=== PATIENT | male | born 1945 | race Caucasian/White ===

== ENCOUNTER 2021-03-16 13:05 | Observation (INO) | payer OTHER, SELFPAY ==
[2021-03-16] VITALS (19 sets, daily range): BP systolic 142–161; BP diastolic 67–93; PULSE 60–65; RESP 13–25; TEMP 36.1–36.6; O2SAT 96–100
--- NOTE | ~2021-03-16 | CT_ITS ---
EXAMINATION: CTA BRAIN/CAROTID DATE: 03/16/2021 13:54 INDICATION: TECHNIQUE: Computed tomographic angiography (CTA) of the head and neck was performed with 100 mL Omni paque-350 intravenous contrast. Multiplanar reconstructions and maximum intensity projection 3D-recon structions of the carotid arteries and of the intracranial arteries were created by the technologist on a separate workstation. Precontrast CT of the head was also obtained. Automated exposure control and iterative reconstruction technique were employed.The dose-length product was 1108.24 mGy-cm. COMPARISON: None. FINDINGS: Carotid arteries: There is 10% stenosis of the right carotid bulb relative to normal distal artery lumen diameter (NASC ET criteria). There is 10% stenosis of the left carotid bulb relative to normal distal artery lumen d iameter. Cervical soft tissues are unremarkable. Visualized apices of the lungs are clear. Likely dev elopmental anterior fusion at C6-T1. There is also posterior fusion across the bilateral C6-C7 facet joints and fusion posteriorly between the first and second ribs on both the left and right. 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 Chronic appearing mild ant erior wedging at T3 and T4. Intracranial arteries Small amount of atherosclerotic plaque at the bilateral carotid siphons and are codominant bilateral intracranial vertebral arteries. There is no hemodynamically significant stenosis in the vertebral, b asilar and internal carotid arteries. There are no aneurysms identified. Both A1 and P1 segments are patent. The left A1 segment however is diminutive with majority of the flow to the left anterior cer ebral artery supplied via the right A1 segment and a patent anterior communicating artery. Cerebral a rterial arborization appears symmetric. No abnormally enhancing brain lesions identified. IMPRESSION: 1. 10% stenosis of the right carotid bulb relative to normal distal artery lumen diameter (NASCET cri teria). 2. 10% stenosis of the left carotid bulb relative to normal distal artery lumen diameter. 3. No aneurysm, hemodynamically significant stenosis or dissection in the intracranial arteries. Reviewed, dictated and finalized at location A. IMPRESSION: 1. 10% stenosis of the right carotid bulb relative to normal distal artery lume n diameter (NASCET criteria). 2. 10% stenosis of the left carotid bulb relative to normal distal artery lumen diameter. 3. No aneurysm, hemodynamically significant stenosis or dissection in the intra cranial arteries.
--- NOTE | ~2021-03-16 | XR_ITS ---
EXAMINATION: XR chest 1V portable DATE: 03/16/2021 13:29 INDICATION: Stroke with left-sided facial droop. TECHNIQUE: frontal view of the chest was obtained. COMPARISON: None FINDINGS: The lungs are clear with no focal airspace opacities, pulmonary edema, pleural effusion or pneumothor ax. The cardiomediastinal silhouette is normal. Dual lead pacemaker seen with leads projecting over t he expected locations of the right atrium and right ventricle. IMPRESSION: 1. No acute cardiopulmonary disease. Reviewed, dictated and finalized at location A.
--- NOTE | ~2021-03-16 | US_ITS ---
EXAMINATION: US carotid duplex BI DATE: 03/17/2021 08:57 INDICATION: Left hemiparesis. TECHNIQUE: Grayscale, color Doppler, and pulsed Doppler images of the cervical carotid arteries were obtained. The degree of vessel stenosis is placed in one of the following categories: normal, <50%, 5 0-69%, >=70% but less than near-occlusion, near-occlusion, or total occlusion. Note that percent sten osis relative to normal distal artery lumen diameter is indirectly measured from velocity measurement s as described by Ze, et al. Radiology 2003; 229:340-346. COMPARISON: None. FINDINGS: RIGHT: The right common carotid artery (CCA) peak systolic velocity (PSV) is 82 cm/s. The right internal car otid artery (ICA) PSV is 71 cm/s. The right ICA end-diastolic velocity (EDV) is 29 cm/s. The right IC A/CCA PSV ratio is 0.9. Grayscale and color Doppler images yield an estimate of <50% diameter reducti on from plaque in the ICA. There is antegrade flow in the right vertebral artery. LEFT: The left CCA PSV is 94 cm/s. The left ICA PSV is 57 cm/s. The left ICA EDV is 20 cm/s. The left ICA/C CA PSV ratio is 0.6. Grayscale and color Doppler images yield an estimate of <50% diameter reduction from plaque in the ICA. There is antegrade flow in the left vertebral artery. IMPRESSION: 1. <50% stenosis in the right internal carotid artery. 2. <50% stenosis in the left internal carotid artery. Reviewed, dictated and finalized at location B.
--- NOTE | ~2021-03-16 | CT_ITS ---
EXAMINATION: CT brain wo con DATE: 03/16/2021 13:10 INDICATION: Stroke with left-sided hemiparesis and slurred speech. TECHNIQUE: Computed tomography (CT) of the head was performed without intravenous contrast. Sagittal and coronal reconstructions were performed. The mA was adjusted according to patient size. Iterative reconstruction technique was employed. The dose-length product was 605.33 mGy-cm. COMPARISON: 10/05/2012 FINDINGS: No acute intracranial hemorrhage, acute infarction or abnormal extra axial fluid collection. Symmetri c prominence of the sulci and ventricles consistent with mild age-appropriate diffuse cerebral volume loss. No mass/mass effect. Changes of right intraocular lens replacement. The orbits, paranasal sinu ses and mastoid air cells are normal. Intracranial calcified cerebral atherosclerosis is noted. IMPRESSION: 1. Mild age-appropriate diffuse volume loss. No acute intracranial process. Reviewed, dictated and finalized at location A.
--- NOTE | 2021-03-16 13:07 | ED.NEUROSD ---
HPI - Neuro Symptoms/Deficit General Chief Complaint: Suspected CVA Stated Complaint: CVA Time Seen by Provider: 03/16/21 13:06 History of Present Illness HPI Narrative: Patient is a 75-year-old male who presents ER with strokelike symptoms. At 1225 patient was in his yard using a watering can when he kept dropping the watering can. He went to his neighbor's house and that they told him he was having facial droop. They called paramedics who then came and picked him up. Mild improvement of symptoms upon arrival here. Still with left upper extremity weakness and coordination. Related Data Home Medications Medication Instructions Recorded Confirmed amlodipine 2.5 mg PO DAILY 03/16/21 03/16/21 aspirin 81 mg PO DAILY 03/16/21 03/16/21 atorvastatin 40 mg PO HS 03/16/21 03/16/21 candesartan 16 mg PO DAILY 03/16/21 03/16/21 ketorolac 1 drp RIGHT EYE TID 03/16/21 03/16/21 loteprednol etabonate [Lotemax SM] 1 drp RIGHT EYE DAILY 03/16/21 03/16/21 tamsulosin 0.4 mg PO DAILY 03/16/21 03/16/21 Allergies Allergy/AdvReac Type Severity Reaction Status Date / Time No Known Allergies Allergy Verified 03/16/21 13:19 Review of Systems Review of Systems: All systems reviewed & are unremarkable except as noted in HPI and below Cardiovascular: Cardiovascular: Denies chest pain, Denies diaphoresis and Denies rapid heart rate Respiratory: Respiratory: Denies chest congestion, Denies cough and Denies dyspnea Gastrointestinal: Gastrointestinal: Denies abdominal pain, Denies nausea and Denies vomiting Neurologic: Denies syncope, Reports lack of coordination, Reports focal weakness, Denies loss of vision and Denies numbness [facility] Past Medical History Medical History (Updated 03/17/21 @ 00:06 by Micah Jane MD) Abdominal aortic aneurysm BPH (benign prostatic hyperplasia) Glaucoma Hypercholesterolemia Hypertension Surgical History Surgical History (Updated 03/17/21 @ 00:06 by Micah Jane MD) H/O eye surgery Right eye cataract excision with stenting for glaucoma as well. Family History Family History (Updated 03/16/21 @ 16:46 by Jordana Wright RN) Sibling Throat cancer Acute myocardial infarction Father Congestive heart failure Social History Social History Smoking status: Current some day smoker Tobacco type: cigars Alcohol intake: current Drinks per week: 7 Substance use: never Substance use type: does not use Gender identity (if verbalized by the patient): Male Spiritual care concerns: No Exam Narrative: Exam Narrative: GENERAL: Well-appearing, well-nourished, and in no acute distress. HEAD: Normocephalic, atraumatic. EYES: PERRL and EOMI. ENT: Mucous membranes moist. CHEST: Clear to auscultation. No respiratory distress. HEART: Regular rate and rhythm. Normal peripheral pulses. ABDOMEN: Soft, nontender, nondistended. EXTREMITIES: Normal range of motion. No edema. SKIN: Warm, dry, no rash. NEURO: See NIH stroke scale. Left upper extremity pronator drift and abnormal finger-nose testing in the left upper extremity. Alert and oriented x3. PSYCH: Normal mood and affect. Course Reevaluation(s) Reevaluation #1: Discussed case with Dr. Chicas at [facility]. He does not recommend TPA given low stroke scale. He would encourage that patient have a CTA of the head and neck. If there is occlusion or significant stenosis he should be contacted again. Otherwise recommends patient be admitted to [facility] for additional risk stratification and MRI. Date: 03/16/21 Time: 13:30 Reevaluation #2: Patient informed of additional results. Admit to hospitalist here. Function of left upper extremity improving but still not at baseline. Date: 03/16/21 Time: 14:54 Vital Signs Vital signs: Vital Signs Temperature 97.6 F 03/16/21 13:10 Pulse Rate 63 03/16/21 13:10 Respiratory Rate 17 03/16/21 13:10 Blood Pressure 148/70 H 03/16/21 13:10 Pulse Oximetry 98 03/16/21 13:10
--- NOTE | 2021-03-16 13:13 | ECG_ITS ---
Measurements Intervals [place] Rate: 64 P: 112 DE: 241 QRS: -71 QRSD: 209 T: 85 QT: 484 QTc: 500 Interpretive Statements ELECTRONIC ATRIAL PACEMAKER ELECTRONIC VENTRICULAR PACEMAKER BASELINE ARTIFACT- II, III, AVF, V1 NO FURTHER INTERPRETATION IS POSSIBLE ATYPICAL ECG Electronically Signed On 03-17-2021 7:22:54 CDT by Federico Figueroa D.O.
[2021-03-16 13:28] LABS: Basophils Absolute Auto 0.1 K/mm3 (0.0-0.1); Basophils Percent Auto 0.9 % (0.2-1.2); Eosinophils Absolute Auto 0.1 K/mm3 (0-0.3); Eosinophils Percent Auto 2.4 % (0-4.4); Hematocrit 41.2 % (42.0-52.0); Immature Granulocyte Absolute 0.02 K/mm3 (0.00-0.031); Immature Granulocyte Percent A 0.3 % (0-0.5); Lymphocytes Absolute Auto 1.26 K/mm3 (0.9-3.2); Lymphocytes Percent Auto 21.7 % (18.3-44.2); Mean Corpuscular Hemoglobin 32.8 pg (26-34); Mean Corpuscular Volume 96.5 fl (80-100); Mean Platelet Volume 9.6 fl (7.4-10.4); Monocytes Absolute Auto 0.6 K/mm3 (0.1-0.6); Monocytes Percent Auto 10.2 % (2.6-8.5); Neutrophils Absolute Auto 3.8 K/mm3 (1.3-6.7); Neutrophils Percent Auto 64.5 % (45.5-73.1); Platelet Count Result 222 k/mm3 (150-375); Red Blood Count 4.27 M/mm3 (4.6-6.20); Red Cell Distribution Width 11.9 % (11.5-14.5); White Blood Count 5.8 K/mm3 (4.5-10.0)
[2021-03-16 13:37] LABS: Anion Gap 5 mmol/L (8-16); Blood Urea Nitrogen 20 mg/dL (9-20); Calcium 8.9 mg/dL (8.4-10.2); Carbon Dioxide 25 mmol/L (22-30); Chloride 107 mmol/L (98-107); Estimated CRCL calculation 62 ml/min; Estimated Glomerular Filt Rate > 60; Glucose 107 mg/dL (75-110); Potassium 4.2 mmol/L (3.4-5.0); Sodium 137 mmol/L (137-145)
[2021-03-16 13:42] LABS: INR 1.1; Prothrombin Time 15.2 Seconds (11.1-14.7)
[2021-03-16 13:43] LABS: Partial Thromboplastin Time 27.4 SECONDS (22.3-36.8)
--- NOTE | 2021-03-16 13:44 | PC.NURSE ---
called labariana, added on Lipid panel, HGB, and A1C 3082
[2021-03-16 13:46] LABS: Estimated CRCL calculation 56 ml/min; Estimated Glomerular Filt Rate > 60
[2021-03-16 13:49] LABS: Troponin I < 0.012 ng/mL (0.000-0.034)
[2021-03-16 14:07] LABS: Cholesterol 129 mg/dL (0-200); HDL Direct 44 mg/dL; Triglycerides 136 mg/dL (<150)
[2021-03-16 14:18] LABS: Hemoglobin A1C 5.3 % (<5.7); LDL Cholesterol Direct 57 mg/dL
[2021-03-16 15:16] LABS: Glucose Point of Care 101 mg/dl (65-105)
--- NOTE | 2021-03-16 16:23 | ADMGEN ---
This patient, Eugene Cuenca, was admitted to Medical Room 258-01. Patient/family oriented to hospital policies and general routines including ID bracelet, bed and alarms, visiting hours, pain management, procedures, bathroom and other care routines, personal items, smoking policy, room service/diet, and visiting hours. Information on how to activate the Rapid Response Team has been discussed. Patient/Family are encouraged to report perceived risks to care and to ask questions if they do not understand what they are told or what they should do.
--- NOTE | 2021-03-16 19:53 | PHAR ---
Home eye drops seen in Pharmacy and returned to 2medical unit. Lotemax SM 0.38% ophth gel and Ketorolac 0.5% ophth solution
[2021-03-16] MEDS: ATORVASTATIN 40 MG TABLET PO (20:35)
[2021-03-17] VITALS (8 sets, daily range): BP systolic 120–185; BP diastolic 65–79; PULSE 60–69; RESP 16–20; TEMP 35.8–36.7; O2SAT 94–100
--- NOTE | 2021-03-17 | ECHO_ITS ---
Patient Info Name: Eugene Cuenca Age: 75 years : 1945 Gender: Male Ht: 70 in Wt: 169 lbs BSA: 1.95 m2 HR: 62 bpm BP: 124 / 67 mmHg Heart Rhythm: Paced Technical Quality: Good Exam Date: 03/17/2021 3:16 PM Exam Location: [facility] Pulmonary Exam Room: [employer] Patient Status: Inpatient Admit Date: 03/16/2021 Staff Ordering Physician: Rani Joyce NP Stockroom Keeper: Mayra Lopez RDCS Attending Provider: Derek Yoder MD Referring Physician: Isiah CRUZ; Exam Type: CA echo doppler w bubble study Study Info Indications - PPM - CVA Complete two-dimensional, color flow and Doppler transthoracic echocardiogram is performed with agitated saline. Contrast/Agitated Saline Contrast/Ag. Saline: Agitated Saline Amount: 20.00 ml Administered By: Kirsten Beck RN Existing IV Access: Yes Summary 1. Left ventricular systolic function is normal, estimated at 55-60%. 2. Left ventricular septal wall motion is abnormal with septal motion related to pacing. 3. Linear artifact in right ventricle suggestive of catheter(s), pacemaker lead(s), or ICD lead(s). 4. Left atrial chamber dimension is mildly enlarged. 5. Saline contrast injection shows no evidence of intracardiac shunting. Left Ventricle Left ventricular chamber dimension is normal. Left ventricular systolic function is normal, estimated at 55-60%. There is mild concentric increased left ventricular wall thickness. Left ventricular septal wall motion is abnormal with septal motion related to pacing. The left ventricular diastolic function is grade I diastolic dysfunction. Right Ventricle Right ventricular chamber dimension is normal. Linear artifact in right ventricle suggestive of catheter(s), pacemaker lead(s), or ICD lead(s). Left Atria Left atrial chamber dimension is mildly enlarged. Right Atria Right atrial chamber dimension is mildly enlarged. Linear artifact in the right atrium suggestive of catheter(s), pacemaker lead(s), or ICD lead(s). Atrial Septum Intact interatrial septum visualized by agitated saline imaging. Saline contrast injection shows no evidence of intracardiac shunting. Aortic Valve The aortic valve is trileaflet. There is mild aortic valve sclerosis. There is trace aortic valve regurgitation. Pulmonic Valve The pulmonic valve is not well visualized. Mitral Valve The mitral valve has normal leaflets. There is mild mitral valve regurgitation. The mitral valve annulus is mildly calcified. Tricuspid Valve The tricuspid valve leaflets are normal. Pericardium/Pleural The pericardium appears normal. Aorta The aortic root size at the sinus of Valsalva is normal. Left Ventricular Outflow Tract Name Value Normal LVOT 2D LVOT Diameter 2.1 cm LVOT Doppler LVOT Peak Gradient 6 mmHg LVOT Mean Gradient 4 mmHg LVOT VTI 25 cm LVOT VTI/AV VTI Ratio 0.8 LVOT Stroke Volume 86 ml
--- NOTE | 2021-03-17 00:03 | PM.IMHP ---
H&P: HPI History of Present Illness Date/Time: 03/16/21 0192 this is a 75-year-old male patient who states that he has had a TIA in the past and that he is on 2 baby aspirin a day. The patient stated that he was watering his garden with a water and can any kept dropping the watering can out his left ham. The patient then went to his neighbor's house asked if he had a facial droop and they told him that he did have some droop to the left face. Initially when he was assessed in the emergency room the patient was not able to do eupuso-ky-evji on the left side a CT missing his nose. He also could not control his left hand enough to have fine motor control to the left hand. Who could not talk his fingers to his thumb. He stated after some time he was able to touch his fingers together. The patient stated that earlier he was not able to chart picker things and hold them. Now it is more improved. This incident was initiated at 12:25 p.m. this afternoon. Head neck CTA was read as 10% stenosis of the right carotid bulb relative to normal distal artery lumen diameter and 10% stenosis of the left carotid bulb relative to normal distal artery ulna diameter. No aneurysm, hemodynamically significant stenosis or dissection in the intracranial arteries. The patient stated that he does have a AAA but they are monitoring it every year. The patient still has some residual left facial droop that is mild and some mild weakness to the left. It has improved significantly.The patient was admitted to observation status on the date of service of 03/16/2021. Chief Complaint: Left-sided weakness Review of Systems Review of Systems: All systems reviewed & are unremarkable except as noted in HPI and below Constitutional: Constitutional: Reports as per HPI and Reports no additional constitutional complaints Eyes: Eyes: Reports as per HPI and Reports no additional eye complaints ENT: Reports system reviewed and no additional complaints, except as documented and Reports Normal hearing present Cardiovascular: Cardiovascular: Reports no additional cardiovascular complaints Respiratory: Respiratory: Reports no additional respiratory complaints and Reports no additional respiratory complaints Gastrointestinal: Gastrointestinal: Reports as per HPI and Reports no additional gastrointestinal complaints Musculoskeletal: Musculoskeletal: Reports no additional musculoskeletal complaints Integumentary/Breasts: Skin/Breast: Reports system reviewed and no additional complaints, except as docu and Reports as per HPI Neurologic: Reports system reviewed and no additional complaints, except as documented, Reports as per HPI and Reports Normal hearing present Psychiatric: Psychiatric: Reports no additional psychiatric complaints and Reports as per HPI Endocrine: Endocrine: Reports no additional endocrine complaints Hematologic/Lymphatic: Hematologic/Lymphatic: Reports no additional hematologic/lymphatic complaints Allergic/Immunologic: Allergic/Immunologic: Reports no additional allergic/immunologic complaints [facility] Past Medical History Medical History (Updated 03/17/21 @ 00:14 by Rani Joyce NP) Abdominal aortic aneurysm Being monitored yearly BPH (benign prostatic hyperplasia) Glaucoma Hypercholesterolemia Hypertension Surgical History Surgical History (Updated 03/17/21 @ 00:14 by Rani Joyce NP) H/O eye surgery Right eye cataract excision with stenting for glaucoma as well. H/O hernia repair History of back surgery History of removal of pigmented skin lesion Family History Family History Sibling Throat cancer Acute myocardial infarction Father Congestive heart failure Social History Social History (Updated 03/17/21 @ 00:16 by Rani Joyce NP) Social History: The patient occasionally smokes cigars. 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 The patient's daughter Mirlande is a durabl
[2021-03-17 05:18] LABS: Basophils Absolute Auto 0.1 K/mm3 (0.0-0.1); Basophils Percent Auto 0.8 % (0.2-1.2); Eosinophils Absolute Auto 0.2 K/mm3 (0-0.3); Eosinophils Percent Auto 2.9 % (0-4.4); Hematocrit 41.3 % (42.0-52.0); Immature Granulocyte Absolute 0.03 K/mm3 (0.00-0.031); Immature Granulocyte Percent A 0.5 % (0-0.5); Lymphocytes Absolute Auto 1.29 K/mm3 (0.9-3.2); Lymphocytes Percent Auto 19.8 % (18.3-44.2); Mean Corpuscular HGB Conc 33.9 g/dl (32-36); Mean Corpuscular Hemoglobin 31.9 pg (26-34); Mean Corpuscular Volume 94.1 fl (80-100); Mean Platelet Volume 9.7 fl (7.4-10.4); Monocytes Absolute Auto 0.6 K/mm3 (0.1-0.6); Monocytes Percent Auto 8.8 % (2.6-8.5); Neutrophils Absolute Auto 4.4 K/mm3 (1.3-6.7); Neutrophils Percent Auto 67.2 % (45.5-73.1); Platelet Count Result 220 k/mm3 (150-375); Red Blood Count 4.39 M/mm3 (4.6-6.20); Red Cell Distribution Width 11.6 % (11.5-14.5); White Blood Count 6.5 K/mm3 (4.5-10.0)
[2021-03-17 05:23] LABS: Alanine Aminotransferase 23 U/L (4-50); Albumin Level 3.6 g/dL (3.5-5.1); Alkaline Phosphatase 60 U/L (38-126); Anion Gap 1 mmol/L (8-16); Aspartate Amino Transferase 45 U/L (17-59); Bilirubin,Total 0.8 mg/dL (0.2-1.3); Blood Urea Nitrogen 16 mg/dL (9-20); Calcium 8.7 mg/dL (8.4-10.2); Carbon Dioxide 29 mmol/L (22-30); Chloride 106 mmol/L (98-107); Estimated CRCL calculation 62 ml/min; Estimated Glomerular Filt Rate > 60; Glucose 102 mg/dL (75-110); Potassium 4.1 mmol/L (3.4-5.0); Sodium 136 mmol/L (137-145)
[2021-03-17] MEDS: TAMSULOSIN HCL 0.4 MG CAPSULE PO (08:02)
[2021-03-17] MEDS: amLODIPine BESYLATE 2.5 MG TABLET PO (08:02)
[2021-03-17] MEDS: CANDESARTAN CILEXETIL 16 MG TABLET PO (08:02)
[2021-03-17] MEDS: ASPIRIN 325 MG ENTERIC TABLET PO (08:02)
--- NOTE | 2021-03-17 08:36 | WPDNEURCNPN ---
Assessment and Plan Assessment and plan (1) Hypertension: Code(s): I10 - Essential (primary) hypertension Status: Chronic (2) Acute CVA (cerebrovascular accident): Code(s): I63.9 - Cerebral infarction, unspecified Status: Acute Additional Plan TIA, rule out the possibility of cervical myelopathy patient has had surgeries on his neck in the past and if that is unrevealing we might consider the EMG nerve conduction study of the upper extremities as an outpatient. Consult date: 03/17/21 Time Seen: 08:15 HPI: Eugene Cuenca is a 75 year old male Admitted to the hospital with the complaints that when he was watering his garden the can kept dropping out of his left arm he went to the neighbor's house and as if his had the facial droop and they told him that he did have some droop to the left side of the face he was seen initially in the emergency room where he was unable to perform finger to nose to finger and also he could not control his left hand and nerve to have fine motor control of the left hand he was unable to take his fingers to the thumb subsequently he was able to touch his fingers together he had a CTA done in the emergency room which documented 10% stenosis right carotid bulb relative to the normal distal latency Hannah Negrito and 10% stenosis of the left carotid bulb relative to normal distal artery there was no aneurysm or leak he has had triple a for the monitoring every year in addition he has had some left facial droop and some weakness of the left upper extremity when seen by the hospitalist. As mentioned before he has undergone back surgery in the past, he has a current some day smoker with 7 drinks per week and has been taking amlodipine, aspirin, atorvastatin, candesartan, and tamsulosin, evaluation documented negatives head and neck CTA as mentioned before and negative CT scan of the head Review of Systems Review of Systems: All systems reviewed & are unremarkable except as noted in HPI and below PMFSH Past Medical History Medical History Abdominal aortic aneurysm Being monitored yearly BPH (benign prostatic hyperplasia) Glaucoma Hypercholesterolemia Hypertension Surgical History Surgical History H/O eye surgery Right eye cataract excision with stenting for glaucoma as well. H/O hernia repair History of back surgery History of removal of pigmented skin lesion Family History Family History Sibling Throat cancer Acute myocardial infarction Father Congestive heart failure Social History Social History Social History: The patient occasionally smokes cigars. 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 The patient's daughter Mirlande is a durable power nitrating acid mixer for healthcare. The patient is and lives home alone. No alcohol or illicit drugs. Smoking status: Current some day smoker Tobacco type: cigars Alcohol intake: current Drinks per week: 7 Substance use: never Substance use type: does not use Gender identity (if verbalized by the patient): Male Spiritual care concerns: No Meds Home Medications and Allergies Home Medications Medication Instructions Recorded Confirmed Type amlodipine 2.5 mg PO DAILY 03/16/21 03/16/21 History aspirin 81 mg PO DAILY 03/16/21 03/16/21 History atorvastatin 40 mg PO HS 03/16/21 03/16/21 History candesartan 16 mg PO DAILY 03/16/21 03/16/21 History ketorolac 1 drp RIGHT EYE TID 03/16/21 03/16/21 History loteprednol etabonate [Lotemax SM] 1 drp RIGHT EYE DAILY 03/16/21 03/16/21 History tamsulosin 0.4 mg PO DAILY 03/16/21 03/16/21 History Allergies Allergy/AdvReac Type Severity Reaction Status Date / Time No Known Allergies Allergy Verified 03/16/21 13:19 Vital Signs Vital Signs - 24 hr 03/16/21 13:10 03/16/21 13:1
--- NOTE | 2021-03-17 08:45 | PCPTNOTE ---
Attempted PT eval. Pt gone for test. Will try again at later time.
--- NOTE | 2021-03-17 11:51 | PM.DS ---
DS: Admitting Diagnosis Admitting Diagnosis Admitting Diagnosis: TIA DS: Discharge Diagnosis Discharge Diagnosis (1) TIA (transient ischemic attack): Code(s): G45.9 - Transient cerebral ischemic attack, unspecified Status: Acute Assessment and Plan: Date of Admission 03/16/21 Date of Discharge 03/17/21 Mr. Cuenca is a 75yo M with hypertension, dyslipidemia, BPH, noon abdominal aortic aneurysm monitored annually who presented to the ED for evaluation of left-sided weakness. 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 He went to his neighbor's house for help and apparently the neighbor noticed patient slurring words and some possible left-sided facial droop. Patient has history of prior TIA back in 2011 after which he underwent pacemaker placement. CT brain demonstrated mild age appropriate diffuse volume loss without evidence of acute intracranial abnormalities. CTA head and neck and echocardiogram results detailed below. Unable to obtain MRI brain due to pacemaker. The patient was monitored overnight and the following morning he is able to ambulate independently, his left hand insurance coordinator strength remains slightly decreased compared to right although overall improved. His speech is clear and no facial asymmetry is appreciated. His symptoms may have been related to TIA and he was educated on same. His home aspirin dose is increased to full-dose aspirin. He is evaluated by Neurology, Dr. Camilo, who recommended he could proceed with an outpatient EMG nerve conduction study of the upper extremities after discharge. 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 (2) Hypercholesterolemia: Code(s): E78.00 - Pure hypercholesterolemia, unspecified Status: Chronic Assessment and Plan: Continue his home statin therapy. (3) Hypertension: Qualifiers: Hypertension type: unspecified Qualified Code(s): I10 - Essential (primary) hypertension Code(s): I10 - Essential (primary) hypertension Status: Chronic Assessment and Plan: Maintained on his home candesartan and Norvasc. (4) BPH (benign prostatic hyperplasia): Qualifiers: Lower urinary tract symptom presence: symptoms absent Qualified Code(s): N40.0 - Benign prostatic hyperplasia without lower urinary tract symptoms Code(s): N40.0 - Benign prostatic hyperplasia without lower urinary tract symptoms Status: Chronic Assessment and Plan: Maintained on his home Flomax. No acute issues. (5) Abdominal aortic aneurysm: Qualifiers: Presence of rupture: without rupture Qualified Code(s): I71.4 - Abdominal aortic aneurysm, without rupture Code(s): I71.4 - Abdominal aortic aneurysm, without rupture Status: Chronic Assessment and Plan: Patient describes this is monitored yearly with imaging by his feller machine operator, Dr. Erickson. DS: Summary Hospital Course Hospital Course: See above. Time Spent with Patient Time attestation: Total time spent providing and/or coordinating discharge services: 35 minutes. Exam Narrative: Exam Narrative: General: Well-appearing male resting comfortably sitting up in bedside chair in no acute distress. HEENT: Normocephalic, EOMI, oral mucosa moist. Cardiovascular: Rate and rhythm are regular. Respiratory: Lungs clear to auscultation bilaterally. Respirations even and non-labored. Tolerating room air. Abdomen: Soft, non-tender, non-distended, bowel sounds present. Extremities: Peripheral
== END 2021-03-17 17:17 | disposition home or self-care (01) ==
LOC: ANHED 14:58 → ANH2MED 15:53
PROVIDERS: Nurse Practitioner; Admitting Provider Internal Medicine; Emergency Provider Emergency Medicine; PCP Internal Medicine; Visit Provider Physician Assistant
DX: G45.9 Transient cerebral ischemic attack, unspecified (principal); I10 Essential (primary) hypertension; E78.00 Pure hypercholesterolemia, unspecified; R29.702 NIHSS score 2; N40.0 Benign prostatic hyperplasia without lower urinary tract symptoms; I71.4 Abdominal aortic aneurysm, without rupture; H40.9 Unspecified glaucoma; F17.290 Nicotine dependence, other tobacco product, uncomplicated; Z86.73 Personal history of transient ischemic attack (TIA), and cerebral infarction without residual deficits; Z79.82 Long term (current) use of aspirin; Z79.899 Other long term (current) drug therapy
CPT/HCPCS: 36415; 70450; 70496; 70498; 71045; 80048; 80053; 80061; 82948; 83036; 83735; 84443; 84484; 85025; 85610; 85730; 93005; 93306; 93880; 96375; 97161; 97165; 99285; A9270; G0378; Q9967

== ENCOUNTER 2021-05-21 08:22 | Outpatient (RCR) | payer OTHER, SELFPAY ==
--- NOTE | 2021-05-21 11:20 | STOPEVAL ---
SPEECH THERAPY INITIAL EVALUATION Thank you for referring Eugene Cuenca to [facility].? The patient is scheduled to be seen for therapy? 1x/week for 2 weeks. Please review, sign, date and return this plan of care RULA. I agree with and certify that the following plan of care is medically necessary. Referring Physician Date Attending Provider: Eliud CATSRO Outpatient Evaluation Start: 05/21/21 08:37 Outpatient Past Medical History Neurological History Hx Cerebrovascular Accident (CVA) Yes: May 01, 2021 & in February 2021 (no rehab) Hx Transient Ischemic Attacks (TIA) Yes: 2011 Cardiovascular History Hx Hypercholesterolemia Yes Hx Hypertension Yes Hx Pacemaker Yes Respiratory History Hx Asthma Yes: has an inhaler but only uses it in the fall Gastrointestinal History Hx Hernia Yes Hx Other Gastrointestinal Disorders Yes: also reports having a abdominal aortic aneurysm Genitourinary History Hx Other Genitourinary Disorders Yes: takes flomax Musculoskeletal History Hx Other Musculoskeletal Disorders Yes: back surgery X2 Hematological History Hx Hematological Disorders No Significant History Endocrine History Hx Endocrine Disorders No Significant History HEENT History Hx Cataracts Yes Hx Glaucoma Yes Hx Ear Surgery Yes: recent eye surgery right Integumentary History Hx Skin Disorders No Significant History Reproductive History Hx Reproductive Disorders No Significant History Psychosocial History Hx Psychiatric Disorders No Significant History Pain History History of Any Previous or Ongoing No Significant History Instance of Pain Anesthesia History Hx Anesthesia Reactions No Significant History Other History Hx Cancer Yes: skin cell basal cell Evaluation Information Problem Diagnosis CVA Onset May 01, 2021 Additional Evaluation Detail Pt and his daughter report that pt was vacationing in [place] when he suffered a CVA. He had been there 14 days at the time of the CVA. Symptoms started with fall as he was attempting to leaf size picker something from the floor. No other symptoms. Pt reports having 2 CVA 's in February with no requirement for Rehab. Reports having 60% restriction in carotid artery. Pt says he is to make an appointment
--- NOTE | 2021-06-05 15:15 | PCSTNOTE ---
SPEECH THERAPY DISCHARGE: Attending Provider: Eliud Stahl Patient:Eugene Cuenca Date of :1945 This 75 year old male was seen for a speech/language and cognitive linguistic evaluation following a CVA that occurred while he was vacationing in [place]. Pt had not received inpatient rehab or home health. At the time of the initial evaluation, the pt cannot report having any significant need for speech therapy. Pt was tested using portions of the [place] Diagnostic Aphasia Examination as well as the [place] information Processing Assessment. Oral motor examination was also completed. Upon completion of an extensive evaluation, all areas of speech, language and cognition were found to be within functional limits. Pt exhibited mild left sided labial and facial weakness however without effect on speech intelligibility which was 100% throughout the entire evaluation. Pt was given a HEP re OM weakness. Pt verbalized and demonstrated understanding; however, wanted to possibly be able to return for a session or 2 if needed. Therefore, ST was recommended x1/week for 2 weeks. Pt 's daughter was in agreement with said plan. Patient did not returned for any further treatments since the initial evaluation. Therefore, he will be discharged at this time. Thank you for referring this patient to [facility]. Please review, sign, date and return this discharge summary RULA. I have been updated about the patient's current status and I agree with discharge from the above service at this time. Referring Physician Date
== END 2021-06-06 15:16 | disposition home or self-care (01) ==
LOC: ANHST 08:22
DX: I63.10 Cerebral infarction due to embolism of unspecified precerebral artery (principal); I69.328 Other speech and language deficits following cerebral infarction; G83.24 Monoplegia of upper limb affecting left nondominant side
CPT/HCPCS: 92523

== ENCOUNTER 2023-11-15 08:44 | Emergency (ER) | payer OTHER, SELFPAY ==
--- NOTE | ~2023-11-15 | CT_ITS ---
EXAMINATION: CT brain wo con DATE: 11/15/2023 09:22 INDICATION: Fall with head injury TECHNIQUE: Computed tomography (CT) of the head was performed without intravenous contrast. Sagittal and coronal reconstructions were performed. The mA was adjusted according to patient size. Iterative reconstruction technique was employed. The dose-length product was 605.33 mGy-cm. COMPARISON: head CT dated 03/16/2021 FINDINGS: No fracture. Moderate-sized region of encephalomalacia in the right frontal lobe and anterior insula consistent with sequela of old infarct. This is new since the prior study. No acute intracranial hemo rrhage, acute infarction or abnormal extra axial fluid collection. There is mild scattered white ellie er hypoattenuation consistent with chronic small vessel ischemic disease. Ventricles are normal and symmetric. No mass/mass effect. Changes of bilateral intraocular lens replacement. The orbits, parana agnes sinuses and mastoid air cells are normal. Intracranial calcified cerebral atherosclerosis is note d. IMPRESSION: 1. No fracture or acute intracranial process. 2. Moderate-sized old infarct in the right frontal lobe and anterior insula. 3. Mild scattered white matter hypoattenuation consistent with chronic small vessel ischemic disease. Reviewed, dictated and finalized at location A. [employer]CHA[employer]DER IMPRESSION: 1. No fracture or acute intracranial process. 2. Moderate-sized old infarct in the right frontal lobe and anterior insula. 3. Mild scattered white matter hypoattenuation consistent with chronic small ve ssel ischemic disease.
[2023-11-15 08:48] VITALS: BP 139/70; PULSE 66; RESP 23; TEMP 36.4; O2SAT 98
--- NOTE | 2023-11-15 08:51 | ED.FALL ---
HPI - Fall General Chief Complaint: Fall Stated Complaint: fall Time Seen by Provider: 11/15/23 08:48 Source: patient Mode of arrival: ambulatory Limitations: no limitations History of Present Illness HPI Narrative: Eugene is an 78-year-old male patient presenting to the ER today with complaints of a ground level fall striking the back of his head. Reports he slipped on ice in his driveway. He denies any loss of consciousness. He does take Plavix daily. Denies any neck pain or any other muscle skeletal pain at this time. He is alert oriented x4. Related Data Home Medications Medication Instructions Recorded Confirmed amlodipine 2.5 mg tablet 2.5 mg PO DAILY 03/16/21 03/16/21 atorvastatin 40 mg tablet 40 mg PO HS 03/16/21 03/16/21 candesartan 16 mg tablet 16 mg PO DAILY 03/16/21 03/16/21 ketorolac 0.5 % eye drops 1 drp RIGHT EYE TID 03/16/21 03/16/21 loteprednol etabonate 0.38 % eye 1 drp RIGHT EYE DAILY 03/16/21 03/16/21 gel drops (Lotemax SM) tamsulosin 0.4 mg capsule 0.4 mg PO DAILY 03/16/21 03/16/21 Allergies Allergy/AdvReac Type Severity Reaction Status Date / Time No Known Allergies Allergy Verified 03/16/21 13:19 [facility] Past Medical History Medical History Abdominal aortic aneurysm Being monitored yearly BPH (benign prostatic hyperplasia) Glaucoma Hypercholesterolemia Hypertension Surgical History Surgical History H/O eye surgery Right eye cataract excision with stenting for glaucoma as well. H/O hernia repair History of back surgery History of removal of pigmented skin lesion Family History Family History Sibling Throat cancer Acute myocardial infarction Father Congestive heart failure Social History Social History Social History: The patient occasionally smokes cigars. 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 The patient's daughter Mirlande is a durable power commonwealth attorney for healthcare. The patient is and lives home alone. No alcohol or illicit drugs. Smoking status: Current some day smoker Tobacco type: cigars Alcohol intake: current Drinks per week: 7 Substance use: never Substance use type: does not use Gender identity (if verbalized by the patient): Male Spiritual care concerns: No Comments At the time of my signature, I reviewed and agree with the nursing past medical, surgical, social, and family history. There is no relevant family history pertinent to the patient complaint. Exam Narrative: General: Well-developed, well nourished, in no apparent distress Head: Normocephalic, small vertical 1 cm laceration to the left occipital area Eyes: Pupils equally round and reactive to light bilaterally, EOM intact, sclera and conjunctive clear, no discharge, lids normal Ears: TMs intact and clear, ear canals clear, no drainage, grossly hearing normal. Nose: Nares patent, no discharge, no inflammation, no sinus tenderness. Mouth: Oropharynx without lesions or masses, good dentition, MMM. Tongue midline, even rise and fall of uvula Neck: Supple, trachea midline, no enlargement of anterior or posterior cervical nodes, no thyroid masses or goiter palpable. Cardio: Regular rate and rhythm, s1 and s2 normal, no murmur appreciated. Resp: Clear to auscultation bilaterally anteriorly and posteriorly, no rhonchi, rales, wheezing or rubs Musculoskeletal: No deformity, non-tender to palpation, grossly normal range of motion, muscle strength strong and equal, peripheral pulse strong, no edema, no cyanosis, normal gait and station Neuro: Alert and oriented x4 with normal speech, no focal deficits, cranial nerves I through XII intact, muscle strength 5 out of 5, sensation intact bilaterally, negative Romberg test Course Course Emergency
== END 2023-11-15 11:50 | disposition home or self-care (01) ==
PROVIDERS: Emergency Provider Nurse Practitioner Family
DX: S01.01XA Laceration without foreign body of scalp, initial encounter (principal); I10 Essential (primary) hypertension; E78.00 Pure hypercholesterolemia, unspecified; H40.9 Unspecified glaucoma; N40.0 Benign prostatic hyperplasia without lower urinary tract symptoms; F17.290 Nicotine dependence, other tobacco product, uncomplicated; W00.0XXA Fall on same level due to ice and snow, initial encounter
CPT/HCPCS: 12001; 70450; 99284